=== PATIENT | male | born 1965 | race Caucasian/White ===

== ENCOUNTER 2017-05-07 19:55 | Emergency (ER) | payer MEDICAID ==
[~2017-05-07] VITALS: Ht 190.5 cm; Wt 127.0 kg
[2017-05-07 19:55] VITALS: BP_SYST 159
[~2017-05-07 19:55] MED LIST: ACET-1172 PO; ALPR1TAB2 PO; ALPR1TAB7 PO; GABA-531 PO; GLUXR500 PO; INSULIN DRIP; METF-303 PO; MORP15TA PO; MORP15TA60 PO; NAPR-227 PO; OMEP20CA10 PO; ROSU20TA PO
[2017-05-07] MEDS ORDERED: TRAM50TA92 PO (21:22)
[2017-05-07] MEDS ORDERED: OXYC20TA55 PO (21:22)
[2017-05-07] MEDS ORDERED: METH500T PO (21:22)
[2017-05-07] MEDS ORDERED: MORPHINE 4 MG/ML INJ. SYRINGE IM ONE (21:30)
[2017-05-07] MEDS ORDERED: MORPHINE 4 MG/ML INJ. SYRINGE IVP ONE (21:45)
[2017-05-07] MEDS ORDERED: ONDANSETRON HCL 4 MG/2 ML VIAL IVP ONE (21:45)
[2017-05-07] MEDS ORDERED: HYDROmorphone 1 MG INJ. 1 MG/ML AMPUL IVP ONE (22:15)
[2017-05-07 23:18] VITALS: BP_SYST 124
== END 2017-05-07 23:18 | disposition home or self-care (01) ==
LOC: SED 19:55
DX: G89.29 Other chronic pain (principal); M54.9 Dorsalgia, unspecified; E10.9 Type 1 diabetes mellitus without complications; Z79.82 Long term (current) use of aspirin; Z79.899 Other long term (current) drug therapy; Z96.41 Presence of insulin pump (external) (internal)
CPT/HCPCS: 96374; 96375; 99284; J1170; J2270; J2405

== ENCOUNTER 2018-08-27 10:36 | Day surgery (SDC) | payer MEDICAID ==
[~2018-08-27 10:36] MED LIST changes: -METF-303 PO; +METF500T6 PO; +METH500T PO; +NAPR-1172 PO; -NAPR-227 PO; +OXYC20TA55 PO; +TRAM50TA92 PO
[2018-08-27] MEDS ORDERED: MIDAZOLAM HCL 5 MG/5 ML VIAL ONE ×2 (10:57→14:00)
[2018-08-27] MEDS ORDERED: DIPHENHYDRAMINE INJ 50 MG/ML VIAL ONE (10:57)
[2018-08-27] MEDS ORDERED: INSULIN REGULAR, HUMAN 10 UNITS/0.1 ML INJ IVP ONE ×2 (11:30→12:00)
[2018-08-27] MEDS ORDERED: ONDANSETRON HCL 4 MG/2 ML VIAL IVP ONE (11:45)
[2018-08-27] MEDS ORDERED: methylPREDNISolone ACETATE 40 MG/ML ONE (14:00)
[2018-08-27] MEDS ORDERED: BUPIVACAINE /PF 0.25% 30 ML VIAL INJ ONE (14:00)
[2018-08-27] MEDS ORDERED: IOHEXOL 300 mgI/mL, 50 mL INFUS..BTL IV ONE (14:00)
[2018-08-27] MEDS ORDERED: LIDOCAINE 2%, 20 ML MDV ONE (14:00)
[2018-08-27] MEDS ORDERED: LR 1,000 ML IV.SOLN IV ONE (14:00)
[2018-08-27 14:37] VITALS: BP_SYST 136
== END 2018-08-27 14:30 | disposition home or self-care (01) ==
LOC: SDS 10:36
PROVIDERS: ATTEND Internal Medicine
DX: M51.16 Intervertebral disc disorders with radiculopathy, lumbar region (principal); E66.9 Obesity, unspecified; E11.9 Type 2 diabetes mellitus without complications; Z98.49 Cataract extraction status, unspecified eye; Z98.890 Other specified postprocedural states; Z79.4 Long term (current) use of insulin
CPT/HCPCS: 62323; 76000; 82948; 82962; J1030; J1200; J2001; J2250; J3490; J7120; Q9967

== ENCOUNTER 2018-12-17 10:17 | Day surgery (SDC) | payer MEDICAID ==
[~2018-12-17] VITALS: Ht 190.5 cm; Wt 127.0 kg
[~2018-12-17 10:17] MED LIST changes: +METF-379 PO; -METF500T6 PO
[2018-12-17] MEDS ORDERED: methylPREDNISolone ACETATE 40 MG/ML IM ONE (10:18)
[2018-12-17] MEDS ORDERED: LIDOCAINE 2%, 20 ML MDV INJ ONE (10:18)
[2018-12-17] MEDS ORDERED: BUPIVACAINE /PF 0.25% 30 ML VIAL INJ ONE (10:18)
[2018-12-17] MEDS ORDERED: IOPAMIDOL 50 ML VIAL IV ONE (10:18)
[2018-12-17] MEDS ORDERED: DIPHENHYDRAMINE INJ 50 MG/ML VIAL ONE (11:19)
[2018-12-17] MEDS: MIDAZOLAM HCL 5 MG/5 ML VIAL ONE ×2 (11:22→11:26)
[2018-12-17] MEDS ORDERED: MIDAZOLAM HCL 5 MG/5 ML VIAL IVP ONE (11:29)
[2018-12-17 11:35] VITALS: BP_SYST 146
[2018-12-17] MEDS ORDERED: MIDAZOLAM HCL 5 MG/5 ML VIAL ONE (11:37)
== END 2018-12-17 13:40 | disposition home or self-care (01) ==
LOC: SDS 10:17 → SMU 10:22 → SDS 13:40
PROVIDERS: ATTEND Internal Medicine
DX: M51.16 Intervertebral disc disorders with radiculopathy, lumbar region (principal); M54.5 Low back pain; E66.9 Obesity, unspecified; E11.9 Type 2 diabetes mellitus without complications; Z98.49 Cataract extraction status, unspecified eye; Z98.890 Other specified postprocedural states; Z79.899 Other long term (current) drug therapy; M79.10 Myalgia, unspecified site
CPT/HCPCS: 62323; 82962; J1030; J1200; J2001; J2250; J3490; J7120; Q9967; 76000

== ENCOUNTER 2019-03-07 03:08 | Emergency (ER) | payer MEDICAID ==
[~2019-03-07] VITALS: Ht 190.5 cm; Wt 126.1 kg
[2019-03-07 03:31] VITALS: BP_SYST 152
[2019-03-07] MEDS ORDERED: MORPHINE 4 MG/ML INJ. SYRINGE IM ONE (05:00)
[2019-03-07 05:08] LABS: BASOPHILS # (AUTO) 0.1 K/uL (0.0-0.2); BASOPHILS % (AUTO) 0.6 % (0.0-2.0); EOSINOPHILS # (AUTO) 0.3 K/uL (0.0-0.4); EOSINOPHILS % (AUTO) 2.9 % (0.0-4.0); HEMATOCRIT 39.9 % (36-54); HEMOGLOBIN 13.9 g/dL (14.0-18.0); LYMPHOCYTES # (AUTO) 3.2 K/uL (1.0-5.5); LYMPHOCYTES % (AUTO) 34.5 % (20.5-51.5); MEAN CORPUSCULAR HEMOGLOBIN 33 pg (27-31); MEAN CORPUSCULAR HGB CONC 35 % (32-36); MEAN CORPUSCULAR VOLUME 95 fL (79.0-98.0); MONOCYTES # (AUTO) 0.6 K/uL (0.0-1.0); MONOCYTES % (AUTO) 6.8 % (1.7-9.3); NEUTROPHILS # (AUTO) 5.2 K/uL (1.8-7.7); NEUTROPHILS % (AUTO) 55.2 % (40.0-70.0); PLATELET COUNT (AUTO) 186 K/uL (130-430); RED CELL DISTRIBUTION WIDTH 15.4 % (9.0-15.0); WHITE BLOOD COUNT (AUTO) 9.3 K/uL (4.8-10.8)
[2019-03-07 05:22] LABS: CALCIUM 8.8 mg/dL (8.4-11.0); CREATININE 1.27 mg/dL (0.55-1.30); POTASSIUM 4.2 mmol/L (3.5-5.1)
[2019-03-07 05:27] LABS: ALBUMIN 3.3 g/dL (3.4-4.8); TOTAL BILIRUBIN 0.4 mg/dL (0.0-1.0)
== END 2019-03-07 05:38 | disposition left against medical advice (07) ==
LOC: SED 03:08
DX: M54.5 Low back pain (principal); E10.9 Type 1 diabetes mellitus without complications; Z79.899 Other long term (current) drug therapy; Z53.20 Procedure and treatment not carried out because of patient's decision for unspecified reasons
CPT/HCPCS: 36415; 80053; 85025; 99283; J2270